=== PATIENT | female | born 1985 | race Two or more races ===

== ENCOUNTER 2018-06-25 14:25 | Emergency (ER) | payer OTHER, BC ==
[~2018-06-25] VITALS: Ht 177.8 cm; Wt 11.3 kg
[2018-06-25 17:46] VITALS: BP 142/89
== END 2018-06-25 17:48 | disposition home or self-care (01) ==
LOC: EME 14:25
DX: M54.6 Pain in thoracic spine (principal); M54.2 Cervicalgia; R07.9 Chest pain, unspecified; V49.40XA Driver injured in collision with unspecified motor vehicles in traffic accident, initial encounter; Y92.410 Unspecified street and highway as the place of occurrence of the external cause
CPT/HCPCS: 70450; 71045; 72125; 72128; 72131; 99281; 99284